=== PATIENT | female | born 2005 | race Caucasian/White ===

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

== ENCOUNTER 2024-02-22 03:40 | Emergency (ER) | payer OTHER, SELFPAY ==
[2024-02-22 03:40] VITALS: BP 149/96; PULSE 138; RESP 16; TEMP 36.6; O2SAT 100; BMI 26.1
[2024-02-22 03:52] VITALS: PULSE 105
--- NOTE | 2024-02-22 04:17 | CT_ITS ---
INDICATION: headache S/P injury EXAMINATION: CT BRAIN - CT Head or Brain W/O Contrast Injection TECHNIQUE: Multiple axial images were obtained of the head without intravenous contrast. The protocol utilizes one or more of the following dose reduction techniques: automated exposure control, adjustment of mA and/or kV according to patient size,and/or use of iterative reconstruction technique. IV Contrast dosage and agent: None. RADIATION DOSAGE (If Supplied By Facility): CTDIvol = ( 44.99 ) mGy, DLP = ( 829.85 ) mGycm COMPARISON: No relevant prior comparison study available FINDINGS: BRAIN PARENCHYMA: No intra- or extra-axial hemorrhage. No evidence of acute infarct. No intracranial mass or mass effect. There is preservation of the osborne/white matter interface. Posterior fossa structures are unremarkable. CSF SPACES: Appropriate for age. No hydrocephalus. Basal cisterns are patent. CALVARIUM, SKULL BASE, PARANASAL SINUSES AND MASTOID AIR CELLS: Moderate mucosal thickening in the paranasal sinuses suggesting chronic sinusitis. No discrete lytic or blastic abnormalities. ORBITS: Both globes, extraocular muscles, optic nerves and retrobulbar fat appear unremarkable. ASPECTS Score for Acute Strokes: 10 CT/Brain/Head without Contrast IMPRESSION: No acute intracranial abnormality. Electronically Signed: Darius Pearce MD at 4:49 EDT ,
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
[2024-02-22 04:55] VITALS: BP 124/83; PULSE 100; RESP 16; TEMP 36.7; O2SAT 100
== END 2024-02-22 04:56 | disposition home or self-care (01) ==
PROVIDERS: Emergency Provider Emergency Medicine; PCP Pediatrics; Visit Provider Emergency Medicine
DX: R51.9 Headache, unspecified (principal); F17.200 Nicotine dependence, unspecified, uncomplicated; Z97.5 Presence of (intrauterine) contraceptive device; Z88.1 Allergy status to other antibiotic agents; Z87.828 Personal history of other (healed) physical injury and trauma
CPT/HCPCS: 70450; 99282

== ENCOUNTER 2024-04-26 18:05 | Emergency (ER) | payer OTHER, SELFPAY ==
[2024-04-26 18:06] VITALS: BP 137/105; PULSE 88; RESP 16; TEMP 36.4; O2SAT 100; BMI 25.3
--- NOTE | 2024-04-26 18:35 | RAD_ITS ---
INDICATION: injury EXAMINATION/TECHNIQUE: X-RAY - RIGHT XR Humerus Min 2 Views 2 VIEWS COMPARISON: FINDINGS: No acute fracture or dislocation. No destructive bone changes. Joint spaces are well-maintained. Normal alignment. Soft tissues are unremarkable. No radiopaque foreign body or soft tissue gas. RAD/Humerus min 2 Views IMPRESSION: Negative study. Electronically Signed: Vane Mann MD at 19:13 EST Reading Location ID and State: [id number] / Tel , Service support ,
--- NOTE | 2024-04-26 18:35 | RAD_ITS ---
INDICATION: injury EXAMINATION/TECHNIQUE: X-RAY - RIGHT XR Forearm 2 Views 2 VIEWS COMPARISON: FINDINGS: No acute fracture or dislocation. No destructive bone changes. Joint spaces are well-maintained. Normal alignment. Soft tissues are unremarkable. No radiopaque foreign body or soft tissue gas. RAD/Forearm 2 Views IMPRESSION: Negative study. Electronically Signed: Vane Mann MD at 19:04 EST Reading Location ID and State: [id number] / Tel , Service support ,
--- NOTE | 2024-04-26 18:35 | RAD_ITS ---
INDICATION: injury EXAMINATION/TECHNIQUE: X-RAY - RIGHT XR Hand Min 3 Views 3 VIEWS COMPARISON: FINDINGS: No acute fracture or dislocation. No destructive bone changes. Joint spaces are well-maintained. Normal alignment. Soft tissues are unremarkable. No radiopaque foreign body or soft tissue gas. RAD/Hand Min 3 Views IMPRESSION: Negative study. Electronically Signed: Vane Mann MD at 18:58 EST Reading Location ID and State: [id number] / Tel , Service support ,
--- NOTE | 2024-04-26 18:44 | EDS_ITS ---
<Statement entered by Miguel Harris, - 04/26/24 21:25> Patient was seen and examined with physician bilingual office assistant Ruthy All components of the history and physical confirmed and agreed. History of present illness and physical exam: Patient is a 18-year-old female with no known significant past medical history who presents to the emergency department with chief complaint of right upper extremity pain after a mechanical fall 2 days ago. States that she was carrying her child inside when she slipped on ice on the front porch and landed on her right arm. She states that she is right hand dominant. She states that she did hit her head but she states that she did not pass out she did not lose consciousness. She states that she has not any blood thinner medications and she has been eating and drinking appropriately not have any episodes of vomiting. Review of systems: Constitutional: Denies any headaches, lightness, dizziness, fevers, chills Eyes: Denies change in vision double vision blurry vision does complain of swelling to the right side of her face where she landed and hit her face Abdomen: Denies abdominal pain nausea vomit diarrhea : Denies any urinary symptoms Neurological: Denies any numbness, weakness, tingling Musculoskeletal: Denies back pain complains of right upper extremity pain as noted above Skin: Complains of bruising to her right Physical exam General: Patient lying in bed rest comfortably did not appear to be in acute distress Head: Atraumatic, normocephalic Eyes, ears, nose, throat: PERRL body, EOMI by, no conjunctival injection noted, patient does have small amount of ecchymosis underneath her right eyelid with swelling below this. Patient bites down here in the emergency department states that her teeth are aligning normally Neck: Soft, supple, trachea midline, no tenderness palpation the midline of the cervical spine Cardiovascular: Regular in rhythm Respiratory: Clear to auscultation bilaterally Abdomen: No tenderness palpation Musculoskeletal: Patient has pain in her right upper extremity with attempted palpation and range of motion, all of the bony prominences palpated no pain elicited as well as joints taken through full range of motion no pain elicited. No tenderness palpation midline of thoracolumbar spine Extremities: +5/5 strength noted in the bilateral lower extremities, radial pulses +2/4 in the bilateral per extremities Neurological: Patient following commands knew that she was at [facility] years 2023 Skin: Warm, dry, see eye MDM Patient is a 18-year-old female who presented to the emergency department chief complaint of right arm pain after a fall 2 nights ago. Patient will have a workup performed here on the differential diagnose includes Melamin to proximal humerus fracture, radius fracture, ulnar fracture, supracondylar humerus fracture, radial head fracture. Once workup is obtained reviewed she will be reevaluated. Patient's x-rays of her right forearm, humerus and hand were reviewed by myself and by radiology which showed no acute fracture dislocations. Patient states that she does feel safe at home and did reveal the ring doorbell footage of her falling on her front porch to the physician bilingual office assistant Ruthy as noted above. She was advised to ice, elevate and use ibuprofen Tylenol [id number] for pain control. She was vies follow-up department care physician outpatient setting. She is encouraged return with worsening symptoms and concerns she would like to go all question concerns answered she was discharged home in stable condition Final impression: Mechanical fall Right arm pain Disposition: Patient will be discharged home in stable condition Supervising attending attestation: Miguel Harris D.O. [facility] History of Present Illness Chief Complaint: Upper Extremity Injury Narrative Narrative: Patient presenting today with pain in her right upper extremity after a mechanical fall occurred 2 nights ago. She was carrying her child inside when she slipped on the ice on the front porch and landed on her right arm. She is right-handed. She did hit her head during the fall but did not lose consciousness, she is not on any blood thinners. She denies current headache and has not had any nausea/vomiting. [facility] Medical History Vaginal delivery Strep throat Rh negative state in antepartum period Acute streptococcal pharyngitis Home Medications ?Medication ?Instructions ?Recorded ?Last Taken ?Type levonorgestrel (Mirena) 1 device intrauterine ONCE 10/23/22 Unknown History Allergy/AdvReac Type Severity Reaction Status Date / Time cefdinir (From Omnicef) Allergy Rash Verified 04/26/24 18:08 Family History Mother Asthma Brother Asthma Grandfather Colon cancer Maternal great grandfather Other Cancer Diabetes Heart disease Surgical History Hx of appendectomy History of laparoscopic appendectomy Social History current occupation: [employer] current occupational exposures/hazards: No pets and animals: No sexually active: Yes Smoking Status: Light Smoker (<10/day) alcohol intake: never substance use type: former substance user and marijuana well-balanced diet: about half the time caffeine: No eating out: 1-3 times/week what type of physical activity do you participate in: none seatbelt use: always additional social history: Boyfriend- Anton- Not employed ROS ROS ED Constitutional Constitutional ED: Denies chills or fever(s) Cardiovascular Cardiovascular: Denies chest pain Respiratory/Chest Respiratory/Chest: Denies dyspnea Gastrointestinal Gastrointestinal: Denies abdominal pain, nausea or vomiting Musculoskeletal Musculoskeletal: Reports arthralgias; Denies myalgias Integumentary Denies Abrasions Neurologic Neurologic: Denies paresthesias EXAM Physical Exam Const Vital Signs: 04/26/24 18:06 Temperature 97.5 F L Temperature Source Temporal Pulse Rate 88 Respiratory Rate 16 Blood Pressure 137/105 H Blood Pressure Mean 115 Pulse Ox 100 Oxygen Delivery Method Room Air Positive well nourished, well developed and no apparent distress General Appearance ED: well developed HEENT Reports normocephalic and head/scalp atraumatic HEENT Narrative: Slight right-sided infraorbital ecchymosis. Mouth ED: Yes moist mucous membranes normal Eyes PERRL and EOMs intact bilaterally Neck full ROM and supple Chest Wall inspection of chest normal Resp normal respiratory effort and clear to auscultation bilaterally Cardio regular rate and regular rhythm Back/Spine normal ROM and normal to inspection Extremity normal to inspection Extremity Narrative: Full range of motion to the right shoulder, elbow, wrist, and all 5 fingers of the right hand. Pain to palpation along the length of the R forearm, elbow, and distal aspect of the humerus. Right radial pulse 2+, good cap refill, sensation intact. Neuro oriented x3, CN's II-XII intact bilaterally, moves all extremities, no focal motor deficits and no sensory deficits noted Sensorium / Orientation: awake and alert Psych mental status grossly normal and thought process normal Skin no rashes or lesions noted and no wounds MDM MDM MDM Narrative Medical decision making narrative: Patient presenting today with pain to her right arm after a mechanical fall occurred 2 nights ago. She did show me a video on her phone from the [employer] doorbell of her slipping and falling on her front porch. She has pain to the right wrist, forearm, elbow, and humerus. X-rays of the right forearm, humerus, and hand obtained to rule out fracture. She was given ibuprofen here for pain. X-rays are negative for fracture. She also has slight right-sided infraorbital ecchymosis from the fall. She does report feeling safe at home. RICE instructions were discussed, she can alternate Tylenol and ibuprofen as needed for her pain. I recommended she follow-up with her PCP. Patient discharged home in stable condition. Discharge Plan Triage Chief Complaint: Upper Extremity Injury ED Midlevel Provider: Leanne Martines ED Provider: Miguel Harris Dx/Rx/DC Orders Clinical Impression: Contusion of arm, right, Fall Instructions: ED Contusion, Upper Extremity Prescriptions: No Action Mirena 21 mcg/24 hours (8 yrs) 52 mg intrauterine device 1 device intrauterine ONCE Rx Instructions: as a single dose Primary Care Provider: Selvin Fan Referrals: Selvin Fan MD [Primary Care Provider] - 5-7 Days Activity Restrictions/Additional Instructions: Ice your arm, alternate Tylenol and ibuprofen as needed for your pain. Print Language: German Disposition Disposition: Home, Self Care Discharge Date/Time: 04/26/24 19:39
[2024-04-26] MEDS: Ibuprofen 600 MG Tablet PO (18:56)
[2024-04-26 19:38] VITALS: BP 108/79; PULSE 80; RESP 18; TEMP 37; O2SAT 100
== END 2024-04-26 19:39 | disposition home or self-care (01) ==
PROVIDERS: Emergency Provider Emergency Medicine; PCP Pediatrics; Visit Provider Emergency Medicine
DX: S40.021A Contusion of right upper arm, initial encounter (principal); S00.11XA Contusion of right eyelid and periocular area, initial encounter; W00.0XXA Fall on same level due to ice and snow, initial encounter; F17.200 Nicotine dependence, unspecified, uncomplicated
CPT/HCPCS: 73060; 73090; 73130; 99282

== ENCOUNTER 2024-04-29 18:23 | Emergency (ER) | payer OTHER, SELFPAY ==
[2024-04-29 18:23] VITALS: BP 119/83; PULSE 88; RESP 18; TEMP 36.4; O2SAT 98; BMI 29.6
--- NOTE | 2024-04-29 19:13 | EX.ED.UPPERE ---
HPI History of Present Illness HPI Narrative: Patient presents with persistent pain to her right elbow, forearm, and hand. Patient states she fell 5 days ago. Patient states she was seen here on 04/26/2024 and had x-rays done which were negative. Patient states the swelling is getting progressively worse. Patient states her pain is sharp and aching. Patient is to some numbness and tingling into her right hand. Patient states she has been keeping her hand and arm elevated with no improvement. Patient denies any new injury. Chief Complaint: Upper Extremity Injury Onset/Context/Timing Onset: Days (5) Context: Sudden Onset Timing: Continuous Quality of Pain: Sharp and Aching Location: Right elbow, forearm, and hand Worsened by: Movement Relieved by: Nothing Associated Symptoms Associated Symptoms: Positive for Parasthesia; Negative for Weakness or Loss of Funtion PFSH [facility] Medical History Vaginal delivery Strep throat Rh negative state in antepartum period Acute streptococcal pharyngitis Home Medications ?Medication ?Instructions ?Recorded ?Last Taken ?Type levonorgestrel (Mirena) 1 device intrauterine ONCE 10/23/22 Unknown History naproxen 500 mg tablet 500 mg PO BID PRN #20 tabs 04/29/24 Unknown Rx Allergy/AdvReac Type Severity Reaction Status Date / Time cefdinir (From Omnicef) Allergy Rash Verified 04/29/24 18:23 Family History Mother Asthma Brother Asthma Grandfather Colon cancer Maternal great grandfather Other Cancer Diabetes Heart disease Surgical History Hx of appendectomy History of laparoscopic appendectomy Social History current occupation: [employer] current occupational exposures/hazards: No pets and animals: No sexually active: Yes Smoking Status: Never smoker alcohol intake: never substance use type: former substance user and marijuana well-balanced diet: about half the time caffeine: No eating out: 1-3 times/week what type of physical activity do you participate in: none seatbelt use: always additional social history: Boyfriend- Anton- Not employed ROS ROS ED Constitutional Constitutional ED: Denies chills or fever(s) Eyes Eyes: Denies blurry vision or change in vision ENT ENT ED: Denies rhinorrhea or sore throat Cardiovascular Cardiovascular: Denies chest pain or palpitations Respiratory/Chest Respiratory/Chest: Denies cough or dyspnea Gastrointestinal Gastrointestinal: Denies nausea or vomiting Genitourinary Genitourinary ED: Denies dysuria or hematuria Musculoskeletal Musculoskeletal: Reports neck pain; Denies back pain Integumentary Denies abscess or rash Neurologic Neurologic: Denies headache(s) or weakness Allergic/Immunologic Allergic/Immunologic ED: Denies mouth swelling or urticaria EXAM Physical Exam Const Vital Signs: 04/29/24 18:23 Temperature 97.6 F L Temperature Source Temporal Pulse Rate 88 Respiratory Rate 18 Blood Pressure 119/83 H Blood Pressure Mean 95 Pulse Ox 98 Oxygen Delivery Method Room Air Positive well nourished and well developed General Appearance ED: well developed and NAD HEENT Reports moist mucous membranes Neck full ROM and supple Extremity Extremity Narrative: There is diffuse tenderness of the right elbow, forearm, and hand. There is no obvious deformity. There are some edema of the hand and forearm. Range of motion was limited in all motions of the right elbow and right wrist secondary to pain. Sensation was intact to light touch in the radial, median, right ulnar areas. Strength is 5/5 in the radial, median, and ulnar areas. Radial pulses are equal bilaterally. Neuro oriented x3, CN's II-XII intact bilaterally, moves all extremities, no focal motor deficits and no sensory deficits noted Sensorium / Orientation: alert Motor Exam: strength 5/5 throughout MDM MDM MDM Narrative Medical decision making narrative: Differential diagnosis includes occult fracture, sprain, and contusion. X-rays of the right elbow will be obtained to assess for fracture and joint effusion. X-rays of the right forearm will be obtained to assess for fracture or dislocation. Radiography Diagnostic Testing: X-rays of the right elbow were obtained. There are 3 views. On my independent interpretation, there is no acute fracture or dislocation. There is no soft tissue swelling or joint effusion. Radiologist also interpreted the x-rays and agrees. X-rays of the right forearm were obtained. There are 2 views. On my independent interpretation, there is no acute fracture. There is no soft tissue swelling. Radiologist also interpreted the x-rays and agrees. Treatment and Re-Evaluation Narrative: Patient was given a dose of Naprosyn here. Patient was advised of her findings. Patient was given a prescription for Naprosyn. Patient was instructed also to ice and elevate the right elbow. The patient was given a sling for comfort. Patient was instructed to do range of motion exercises. Patient was instructed to follow-up with her primary care physician in 5 to 7 days. Patient and mother understood and were agreeable with the plan. All questions were answered. Discharge Plan Triage Chief Complaint: Upper Extremity Injury ED Provider: Berhane Martin Dx/Rx/DC Orders Clinical Impression: Sprain of right elbow, Contusion of arm, right, Fall Instructions: ED Sprain, Elbow Prescriptions: New naproxen 500 mg tablet 500 mg PO BID PRN Qty: 20 0RF No Action Mirena 21 mcg/24 hours (8 yrs) 52 mg intrauterine device 1 device intrauterine ONCE Rx Instructions: as a single dose Primary Care Provider: Selvin Fan Referrals: Selvin Fan MD [Primary Care Provider] - 5-7 Days Print Language: Polish Disposition Disposition: Home, Self Care
--- NOTE | 2024-04-29 19:20 | RAD_ITS ---
EXAM: XR RIGHT FOREARM, 2 VIEWS CLINICAL INDICATION: Injury/Pain TECHNIQUE: Frontal and lateral views of the right forearm. COMPARISON: No relevant prior studies available. FINDINGS: BONES/JOINTS: Unremarkable. No acute fracture. No dislocation. SOFT TISSUES: Unremarkable. RAD/Forearm 2 Views IMPRESSION: Negative right forearm x-rays. Electronically Signed: Nikunj Eddy MD at 20:19 EST ,
--- NOTE | 2024-04-29 19:20 | RAD_ITS ---
EXAM: XR RIGHT ELBOW COMPLETE, 3 OR MORE VIEWS CLINICAL INDICATION: Injury/Pain TECHNIQUE: Frontal, lateral and oblique views of the right elbow. COMPARISON: No relevant prior studies available. FINDINGS: BONES/JOINTS: Unremarkable. There is no displacement of the anterior or posterior fat pads. No acute fracture. No subluxation. Normal alignment. Preservation of the joint space. No destructive or sclerotic lesions. SOFT TISSUES: Unremarkable. No soft tissue swelling or gas. No radiopaque foreign body. RAD/Elbow min 3 Views IMPRESSION: Negative right elbow. Electronically Signed: Nikunj Eddy MD at 20:12 EST ,
[2024-04-29] MEDS: Naproxen 500 MG Tablet PO (21:34)
== END 2024-04-29 21:41 | disposition home or self-care (01) ==
PROVIDERS: Emergency Provider Emergency Medicine; PCP Pediatrics; Visit Provider Emergency Medicine
DX: S53.401A Unspecified sprain of right elbow, initial encounter (principal); S40.021A Contusion of right upper arm, initial encounter; W19.XXXA Unspecified fall, initial encounter; Z88.1 Allergy status to other antibiotic agents
CPT/HCPCS: 73080; 73090; 99282

== ENCOUNTER → 2024-08-19 | Outpatient (CLI) | payer OTHER, SELFPAY ==
[2024-08-20 04:06] LABS: Thyroid Peroxidase AB 68 IU/mL (0-26)
== END | disposition home or self-care (01) ==
PROVIDERS: PCP Pediatrics; Referring Provider Nurse Practitioner Women's Health; Visit Provider Nurse Practitioner Women's Health
DX: R63.5 Abnormal weight gain (principal)
CPT/HCPCS: 36415; 84439; 86376